=== PATIENT | female | born 1935 | race Caucasian/White ===

== ENCOUNTER → 2016-10-03 | Outpatient (CLI) | payer MEDICARE, BC ==
[~2016-10-03] MED LIST: ALBUTEROL17 GM INH; ASPERDRINK81 MG PO; ASPIRIN81 M2 PO; B-COMPLEX W/1 TAB.S1 PO; B-COMPLEX W/VIT1 TA1 PO; CALCIUM + D 6001 TA1 PO; CALCIUM 1,0001 EACH PO; CALCIUM 1,2001 EACH PO; CENTURY CARDIO1 EACH PO; COUMADIN5 MG PO; CYPROHEPTADINE H4 MG PO; HYDROCHLOROTHIA25 MG PO; HYDROCODON-ACE1 EAC7 PO; HYDROCODON-ACE1 EAC9 PO; LIPITOR40 MG PO; LITE COAT ASPI325 M1 PO; LOPRESSOR PO; LOVENOX40 MG/0.4 INJ; METOPROLOL SUCC50 MG PO; MULTI-DAY VITAM1 TAB PO; NORVASC PO; VITAMIN D-32000 UNI1 PO; VITAMIN D1000 UNI1 PO; VITAMIN D2000 UNIT PO
--- NOTE | ~2016-10-03 | MY11 ---
[facility] A Service of [facility] & [facility] RADIOLOGY TEXT RESULTS PATIENT: KARLA ARNOLD LOCATION: [facility] : 35 UNIT #: [id number] AGE: [address]: Braeden Gómez MD SEX: F ORDER DR: [id number] [facility] [address] [facility]. [place], [place] [address] [id number] O MR#: [id number] Acc #: [id number] NAME: KARLA ARNOLD : 1935 SEX: F STUDY DATE/TIME: 10/03/2016 11:23 UNIT: [facility] ROOM: STUDY DESCRIPTION: MY Mammogram Screening Dig Wali Attending Physician: Braeden Gómez M.D. Referring Physician: Braeden Gómez M.D. Ordering Physician: Braeden Gómez M.D. Primary Care Physician: Braeden Gómez M.D. MEDICAL IMAGING REPORT This report is preliminary unless electronic signature is present EXAM Bilateral digital screening mammogram with CAD. DATE 10/03/2016 HISTORY 81-year-old female with no personal or family history of breast cancer or current complaints. Patient states she has had weight loss since the last mammogram. COMPARISON Bilateral digital diagnostic mammogram 06/04/2013. Bilateral screening mammogram 04/06/2013, 02/28/2010, 02/22/2009. FINDINGS CC and MLO views were obtained of each breast utilizing technique and reviewed with an FDA-approved CAD device. Scattered fibroglandular densities are present bilaterally. There is a somewhat fibronodular pattern to each breast. There is stable fibronodular dominance or ductal ectasia in the subareolar region of each breast, right greater left, which appears unchanged. No new dominant nodule is seen. Calcifications within the subareolar left breast appear stable since 2013, in keeping with benign findings. There are coarse calcifications within each breast, as well. No suspicious cluster of microcalcification or architectural distortion is seen. IMPRESSION BIRADS 2. Benign findings. Routine bilateral screening mammogram recommended in 1 year. Patients over the age of 40 are entered into a reminder system with target STS. [facility] A Service of [facility] & [facility] RADIOLOGY TEXT RESULTS PATIENT: KARLA ARNOLD LOCATION: [facility] : 35 UNIT #: [id number] AGE: [address]: Braeden Gómez MD SEX: F ORDER DR: due date for the next mammogram. A result letter will also be sent to the patient. BIRADS: 2 Benign finding. Dictated by... Maritza Gomez M.D. THIS IS AN ELECTRONICALLY VERIFIED REPORT Maritza Gomez M.D. at 10/05/2016 7:14 AM [facility]/reji TD: 10/03/2016 13:56 JOB #: [id number] MEDICAL IMAGING REPORT Page 1 of 1 COPY
== END | disposition home or self-care (01) ==
LOC: CMAM 11:00 → CWCC 11:13
DX: Z12.31 Encounter for screening mammogram for malignant neoplasm of breast (principal)
CPT/HCPCS: G0202

== ENCOUNTER → 2016-10-08 | Outpatient (CLI) | payer MEDICARE, BC ==
--- NOTE | ~2016-10-08 | CT57 ---
[facility] A Service of [facility] & [facility] RADIOLOGY TEXT RESULTS PATIENT: KARLA ARNOLD LOCATION: [facility] : 35 UNIT #: [id number] AGE: [address]: Braeden Gómez MD SEX: F ORDER DR: [id number] [facility] [address] [facility] [place], [place] [address] [id number] O MR#: [id number] [facility] #: [id number] NAME: KARLA ARNOLD : 1935 SEX: F STUDY DATE/TIME: 10/08/2016 11:05 UNIT: [facility] ROOM: STUDY DESCRIPTION: CT Chest Wo Cont Attending Physician: Braeden Gómez M.D. Referring Physician: Braeden Gómez M.D. Ordering Physician: Braeden Gómez M.D. Primary Care Physician: Braeden Gómez M.D. MEDICAL IMAGING REPORT This report is preliminary unless electronic signature is present EXAM CT chest without contrast DATE 10/08/2016 HISTORY 81-year-old female with unexplained, 20 pound weight loss over the past year. Diminished appetite. No documented history of malignancy. COMPARISON CT chest with contrast 11/27/2010 PROCEDURE 5 mm noncontrast axial images through the chest. Sagittal and coronal reformatted images were obtained. This CT exam was performed with one or more of the following radiation dose reduction techniques: automatic exposure control, adjustment of mA and/or kV according to patient size, and iterative reconstruction. FINDINGS Mild peripheral alveolar opacity has developed within the left lower lobe (series 6, image #52). Benign infectious-inflammatory etiology is favored. Moderately advanced emphysematous changes are present. No pathologic adenopathy is seen. There is no pericardial effusion or pleural effusion. Dense calcific atherosclerosis is seen within the thoracic aorta, without evidence of aortic aneurysm. There is either atrophy or surgical absence of the right thyroid lobe. Left thyroid lobe appears stable and is probably unchanged from prior. Dense coronary artery calcifications are present. There is left renal atrophy. Dense calcific atherosclerosis within the abdominal aorta. Diverticular changes in the imaged proximal descending colon. Remainder included upper abdominal organs have a normal noncontrast appearance. [facility] A Service of [facility] & [facility] RADIOLOGY TEXT RESULTS PATIENT: KARLA ARNOLD LOCATION: [facility] : 35 UNIT #: [id number] AGE: [address]: Braeden Gómez MD SEX: F ORDER DR: No acute or suspicious osseous abnormalities are identified. IMPRESSION 1. Mild focal peripheral alveolar opacity within the left lower lobe favored to represent benign infectious inflammatory pneumonitis. Consider short-term CT chest followup in 4-6 months to document resolution. 2. Moderately advanced emphysema. 3. Advanced calcific atherosclerosis in the aorta. 4. Left renal atrophy. 5. Colonic diverticulosis. Dictated by... Maritza Gomez M.D. THIS IS AN ELECTRONICALLY VERIFIED REPORT Maritza Gomez M.D. at 10/11/2016 8:30 AM [facility]/robinson TD: 10/08/2016 17:19 JOB #: [id number] MEDICAL IMAGING REPORT Page 1 of 1 COPY
--- NOTE | ~2016-10-08 | CT4 ---
[facility] A Service of [facility] & [facility] RADIOLOGY TEXT RESULTS PATIENT: KARLA ARNOLD LOCATION: [facility] : 35 UNIT #: [id number] AGE: [address]: Braeden Gómez MD SEX: F ORDER DR: [id number] [facility] [address]. [place], [place] [address] [id number] O MR#: [id number] Acc #: [id number] NAME: KARLA ARNOLD : 1935 SEX: F STUDY DATE/TIME: 10/08/2016 11:05 UNIT: [facility] ROOM: STUDY DESCRIPTION: CT Abd and Pelv Wo Cont Attending Physician: Braeden Gómez M.D. Referring Physician: Braeden Gómez M.D. Ordering Physician: Braeden Gómez M.D. Primary Care Physician: Braeden Gómez M.D. MEDICAL IMAGING REPORT This report is preliminary unless electronic signature is present EXAM CT abdomen and pelvis without contrast 10/08/2016 HISTORY 81-year-old female with unexplained 20 pound weight loss in the past year. Diminished appetite. Appendectomy. Right hip surgery. COMPARISON CT abdomen and pelvis with contrast 12/20/2015. TECHNIQUE 5 mm noncontrast axial images from the lung bases through the lesser trochanters. Enteric contrast was not administered. Sagittal and coronal reformatted images were obtained. This CT exam was performed with one or more of the following radiation dose reduction techniques: automatic exposure control, adjustment of mA and/or kV according to patient size, and iterative reconstruction. FINDINGS ABDOMEN: There is severe calcific atherosclerosis within the abdominal aorta and common iliac arteries. No focal aneurysm is seen. There is advanced left renal atrophy. Right kidney has a normal noncontrast appearance. Gallbladder is surgically absent. The noncontrast appearance of the liver, spleen, pancreas, and adrenal glands is within normal limits. Diverticular changes are present within the descending and sigmoid colon without evidence of acute diverticulitis. The appendix is not confidently visualized but no pericecal inflammation is seen. PELVIS: Urinary bladder, uterus and rectum appear within normal limits. Right hip replacement changes are present. Calcification is seen along the anterior margin of the right hip joint which appears chronic. [facility] A Service of [facility] RADIOLOGY TEXT RESULTS PATIENT: KARLA ARNOLD LOCATION: [facility] : 35 UNIT #: [id number] AGE: [address]: Braeden Gómez MD SEX: F ORDER DR: Degenerative changes in the lumbar spine. No acute osseous abnormalities are identified. IMPRESSION 1. No acute findings in the abdomen or pelvis. No mass lesion or adenopathy is seen. No CT explanation for the patient's unexplained weight loss. 2. Advanced calcific atherosclerosis. 3. Uncomplicated colonic diverticulosis. 4. Advanced left renal atrophy. 5. Cholecystectomy. Right hip replacement. Dictated by... Maritza Gomez M.D. THIS IS AN ELECTRONICALLY VERIFIED REPORT Maritza Gomez M.D. at 10/11/2016 8:30 AM [facility]/damien TD: 10/08/2016 17:27 JOB #: [id number] MEDICAL IMAGING REPORT Page 1 of 1 COPY
== END | disposition home or self-care (01) ==
LOC: CCAT 10:29
DX: R63.4 Abnormal weight loss (principal); J43.9 Emphysema, unspecified; I70.0 Atherosclerosis of aorta; N26.1 Atrophy of kidney (terminal); K57.30 Diverticulosis of large intestine without perforation or abscess without bleeding; Z90.49 Acquired absence of other specified parts of digestive tract; Z96.641 Presence of right artificial hip joint
CPT/HCPCS: 71250; 74176

== ENCOUNTER → 2016-12-19 | Outpatient (CLI) | payer MEDICARE, BC | END | disposition home or self-care (01) | LOC: CSSDAY 09:50 | DX: M81.0 Age-related osteoporosis without current pathological fracture (principal) | CPT/HCPCS: 96372 ==